=== PATIENT | male | born 1995 | race Two or more races ===

== ENCOUNTER 2018-12-19 12:28 | Emergency (ER) | payer OTHER, MEDICAID ==
[~2018-12-19] VITALS: Ht 172.7 cm; Wt 82.0 kg
[2018-12-19] MEDS ORDERED: ALPRAZOLAM 0.25 MG TABLET PO ONE (18:45)
[2018-12-19] MEDS ORDERED: ONDANSETRON 4MG ODT PO ONE (18:45)
[2018-12-19 18:51] LABS: BASOPHILS % 1.1 % (0.0-2.0); EOSINOPHILS % 1.9 % (0.0-5.0); HEMATOCRIT. 45.5 % (42.0-52.0); HEMOGLOBIN. 15.8 g/dL (14.0-18.0); LYMPHOCYTES % 32.9 % (20.0-50.0); MEAN CORPUSCULAR HEMOGLOBIN 30.4 pg (28.0-32.0); MEAN CORPUSCULAR VOLUME 87.2 fL (80.0-94.0); MEAN PLATELET VOLUME 8.2 fl (7.4-10.4); NEUTROPHILS % 56.1 % (40.0-76.0); PLATELET 224 x1000/uL (130-400); RED BLOOD CELL COUNT 5.22 mill/uL (4.7-6.1); RED CELL DISTRIBUTION WIDTH 13.3 % (11.6-14.6)
[2018-12-19 18:56] LABS: CHLORIDE 107 mEq/L (98-107)
[2018-12-19 19:22] VITALS: BP 134/80
== END 2018-12-19 19:43 | disposition home or self-care (01) ==
LOC: ER 12:28
DX: F41.9 Anxiety disorder, unspecified (principal); R42 Dizziness and giddiness
CPT/HCPCS: 36415; 80053; 84443; 84484; 85025; 93005; 99284; Q0162

== ENCOUNTER 2021-06-04 12:39 | Emergency (ER) | payer OTHER, MEDICAID ==
[~2021-06-04] VITALS: Ht 172.7 cm; Wt 90.0 kg
[2021-06-04] MEDS ORDERED: IBUPROFEN 600MG TABLET PO ONE (13:30)
[2021-06-04 14:34] LABS: BASOPHILS % 0.7 % (0.0-2.0); EOSINOPHILS % 2.7 % (0.0-5.0); HEMATOCRIT. 44.8 % (42.0-52.0); HEMOGLOBIN. 15.6 g/dL (14.0-18.0); MEAN CORPUSCULAR VOLUME 85.8 fL (80.0-94.0); MEAN PLATELET VOLUME 8.6 fl (7.4-10.4); MONOCYTES % 5.7 % (2.0-8.0); NEUTROPHILS % 72.9 % (40.0-76.0); PLATELET 248 x1000/uL (130-400); RED BLOOD CELL COUNT 5.22 mill/uL (4.7-6.1); RED CELL DISTRIBUTION WIDTH 12.7 % (11.6-14.6)
[2021-06-04 14:38] LABS: CHLORIDE 106 mEq/L (98-107)
[2021-06-04 16:07] VITALS: BP 131/69
== END 2021-06-04 16:09 | disposition home or self-care (01) ==
LOC: ER 12:39
DX: R07.89 Other chest pain (principal)
CPT/HCPCS: 36415; 71046; 80053; 84484; 85025; 93005; 99285

== ENCOUNTER 2024-01-09 14:30 | Emergency (ER) | payer OTHER, MEDICAID ==
[~2024-01-09] VITALS: Ht 172.7 cm; Wt 92.0 kg
[2024-01-09 14:32] VITALS: O2SAT 99
[2024-01-09 17:25] VITALS: BP 123/75; PULSE 77; RESP 16; TEMP 36.61404; O2SAT 100
== END 2024-01-09 17:32 | disposition home or self-care (01) ==
LOC: ER 14:30
DX: F41.9 Anxiety disorder, unspecified (principal); R06.02 Shortness of breath
CPT/HCPCS: 71045; 99283